=== PATIENT | female | born 1985 | race Caucasian/White ===

== ENCOUNTER 2017-02-25 18:19 | Emergency (ER) | payer BC ==
[~2017-02-25] VITALS: Ht 167.6 cm; Wt 101.7 kg
[2017-02-25 18:22] VITALS: BP 142/94
== END 2017-02-25 19:33 | disposition home or self-care (01) ==
LOC: ED 19:05
DX: S09.90XA Unspecified injury of head, initial encounter (principal); R55 Syncope and collapse; T40.7X5A Adverse effect of cannabis (derivatives), initial encounter; W18.09XA Striking against other object with subsequent fall, initial encounter; Y93.89 Activity, other specified; Y92.89 Other specified places as the place of occurrence of the external cause; Y99.8 Other external cause status
CPT/HCPCS: 70450; 93005; 99284